=== PATIENT | female | born 1955 | race Caucasian/White ===

== ENCOUNTER 2021-08-07 10:13 | Inpatient (IN) | payer MEDICARE, OTHER ==
[~2021-08-07] VITALS: Ht 157.5 cm; Wt 67.6 kg
--- NOTE | 2021-08-07 10:23 | NUR ---
Pt BIB [facility] for severe abd pain x one night. Pt states that she was up all night in pain and didnt get any sleep. Pt aaox4 with slighly pale, good temp and appearance. Pt slightly hypertensive.
--- NOTE | 2021-08-07 10:23 | NUR ---
Pt taken straight to room 1b and placed on gurney in pos of comfort, connected to bedside monitor and initial VS obtained 157/97, 99%RA, 101 bpm, 18rpm. Pt boarderline sinus tach without ectopy, complaining of severe pain in RUQ and LUQ x one night. Pt suffers from hypertension, but no other major med issues. Denies any sob, dizziness and only mild nausea with no emesis. Pt gotten into gown and IV started on Rt AC 20g without difficulty. No s/sxof distress present.
[2021-08-07] MEDS ORDERED: MORPHINE SULFATE 4 MG/1 ML DISP.SYRIN ONE ×2 (10:24→14:16)
[2021-08-07] MEDS ORDERED: ONDANSETRON 4 MG/2 ML VIAL ONE (10:24)
[2021-08-07] MEDS ORDERED: IOHEXOL 300MG/ML 100 ML INFUS..BTL ONE (10:25)
[2021-08-07] MEDS ORDERED: IV NORMAL SALINE 250 ML IV ONE (10:26)
[2021-08-07] MEDS ORDERED: SWABABLE VALVE TRANSFER SET EA MC ONE (10:26)
[2021-08-07] MEDS ORDERED: ONDANSETRON 4 MG/2 ML VIAL IV ONE (10:30)
[2021-08-07] MEDS ORDERED: IV NORMAL SALINE 1000 ML BAG IV ONE (10:30)
[2021-08-07] MEDS ORDERED: MORPHINE SULFATE 2 MG/1 ML DISP.SYRIN IV ONE (10:30)
[2021-08-07 10:40] LABS: HEMATOCRIT 41.3 % (31.2-41.9); MEAN CORPUSCULAR HEMOGLOBIN 30.9 uug (24.7-32.8); MEAN CORPUSCULAR VOLUME 89.9 fL (75.5-95.3); PLATELET COUNT (AUTO) 112 K/uL (179-408)
--- NOTE | 2021-08-07 10:40 | NUR ---
Pt states that she needs to go to bathroom, but states that she cant walk. Pt urinated on gurney, because she was unable to hold urine until I reached for a bedpan. Pt assured that its quite alright and that we will clean her when she is done voiding. Pt provided pericare, linen and diaper changed. Pt is clean and dry and placed in pos of comfort. Pt told that UA is needed and to inform us next time she has the urge, we will give her a bedpan.
[2021-08-07 10:41] LABS: CARBON DIOXIDE 22 mmol/L (21-32); CHLORIDE 96 mmol/L (98-107); CREATININE 1.3 mg/dL (0.6-1.3); GLUCOSE 215 mg/dL (74-106); UREA NITROGEN, BLOOD 12 mg/dL (7-18)
--- NOTE | 2021-08-07 10:45 | NUR ---
12lead EKG performed without difficulty and show to EDMD.
[2021-08-07 10:54] LABS: ALANINE AMINOTRANSFERASE 67 U/L (14-59); ALKALINE PHOSPHATASE 79 U/L (50-136); ASPARTATE AMINOTRANSFERASE 81 U/L (15-37); BILIRUBIN,DIRECT 0.2 mg/dL (0.0-0.2); BILIRUBIN,TOTAL 0.9 mg/dL (0.2-1.0); LIPASE 134 U/L (73-393); TOTAL PROTEIN, SERUM 8.6 g/dL (6.4-8.2)
--- NOTE | 2021-08-07 11:16 | NUR ---
Pt just taken to CT by [facility] via [facility] for CT of abd and pelvis with contrast. Pt's VSS, PE WNL, No s/sxof distress present.
--- NOTE | 2021-08-07 11:37 | NUR ---
Pt just returned from CT tranported by [facility]. Pt placed back on monitor and fresh VS obtained. VSS, Pt states pain is doing much better but that she stil has 5/10 pain in the Rt flank area.
--- NOTE | 2021-08-07 11:52 | NUR ---
Pt requested bedpan again but was unable to hold it due to urgency. was able to collect approx 30cc of urine in bedpan, placed in specimen container, labled and sent to lab for analysis. EXECUTIVE VICE PRESIDENT students asisted with pericare and linen change. Pt is clean and dry and placed in pos of comfort. Pt states that pain is markedly better and is tolerable. I informed pt, that if she requires more pain meds, to just let me know. We preferrably want to keep pain less than 3/10. Pt acknowledged.
[2021-08-07] MEDS ORDERED: IV NORMAL SALINE 500 ML BAG IV ONE (12:00)
[2021-08-07 12:10] LABS: *BILIRUBIN,URIN NEGATIVE (NEGATIVE); *BLOOD, URINE NEGATIVE (NEGATIVE); *CLARITY,URINE CLEAR (CLEAR); *COLOR,URINE LIGHT YELLOW (YELLOW); *KETONES,URINE NEGATIVE (NEGATIVE); *UROBILINOGEN,URINE 0.2 E.U./dl (NORMAL); LEUKOCYTE ESTERASE ,URINE NEGATIVE (NEGATIVE); NITRITE, URINE NEGATIVE (NEGATIVE); UGLUCOSE NEGATIVE (NEGATIVE)
[2021-08-07] MEDS ORDERED: MORPHINE SULFATE 4 MG/1 ML DISP.SYRIN IV ONE (13:45)
[2021-08-07] MEDS ORDERED: CEFTRIAXONE 1 G in IV DEXTROSE 5% 50 ML IV ONE (13:45)
[2021-08-07] MEDS ORDERED: METRONIDAZOLE 500 MG/NS 100 ML PIGGYBACK IV ONE (13:45)
[2021-08-07] MEDS ORDERED: METRONIDAZOLE 500 MG/NS 100ML 100 ML IV ONE (14:16)
[2021-08-07] MEDS ORDERED: CEFTRIAXONE /D5W 50ML IVPB **ER PYXIS IV ONE (14:17)
--- NOTE | 2021-08-07 15:50 | NUR ---
Pt swabbed for covid since she is beind admitted under [facility]. Pt tolerated well.
--- NOTE | 2021-08-07 16:29 | NUR ---
PT UNABLE TO REMEMBER LIST OF CURRENT MEDICATIONS AND DOSAGES.
--- NOTE | 2021-08-07 17:14 | NUR ---
Pt assigned to room 325. Calling 3rd floor now to try to give report.
--- NOTE | 2021-08-07 18:45 | NUR ---
Pt transported to room 325 via gurney by me personally. Pt placed on hospital bed in pos of comfort. wet diaper changed. STATISTICAL CONSULTANT at bedside for inital admit VS. VSS. Pt aaox4 with good color and appearance. PE WNL, NAD. No s/sxof distress present.
[2021-08-07 18:48] VITALS: BP 146/61
--- NOTE | 2021-08-07 18:49 | NUR ---
Patient arrive [facility] via [facility]. vitals: 98.3, RR18, 0/10 pain and 146/61. Patient AAOX4. able to assist transferring herself from gurney to bed. IV access to RAC patent. Beni Mueller stated admission documents will come up later with next pt. delivery. Incoming shift will be endorsed pending admission and procedures.
[2021-08-07] MEDS ORDERED: ONDANSETRON 4 MG/2 ML VIAL IV PRN (19:45)
--- NOTE | 2021-08-07 20:00 | NUR ---
Admitted a 66 years old female with Dx of Acute cholecystitis. Patient AAOx3-4. In no acute distress. Denies any SOB. Complain of pain on abdominal area. Will provide pain medication per order. Iv site on right AC intact and patent. NPO status. Routine admission care done. Safety measure initiated and call light within reached.
[2021-08-07] MEDS: IV D5 1/2 NS 1000 ML 1,000 ML IV PRN (20:10)
[2021-08-07] MEDS: MORPHINE SULFATE 2 MG/1 ML DISP.SYRIN IV PRN (20:10)
[2021-08-07 20:15] VITALS: BP 130/69
[2021-08-07] MEDS ORDERED: PIPERACILLIN SODIUM/TAZOBACTAM 4.5 G in IV DEXTROSE 5% 50 ML IV ONE (21:00)
--- NOTE | 2021-08-07 23:35 | NUR ---
Telephone call from [facility] and reported that patient is + for COVID. Both charge nurse Tylor and Natural Resources Technician Vladimir made aware. Vladimir to inform OR Team. Patient transferred to COVID room 322.
[2021-08-08 04:00] VITALS: BP 124/66
[2021-08-08] MEDS: PIPERACILLIN SODIUM/TAZOBACTAM 3.375 G in IV DEXTROSE 5% 100 ML IV SCH ×3 (05:42→20:27)
--- NOTE | 2021-08-08 05:55 | NUR ---
Slept well during the night. Denies any further pain. No complain of SOB. IV site on right AC intact and patent. IVF infusing. NPO status. COVID precaution maintained. Safety measure maintained and call light within reached.
[2021-08-08 06:18] LABS: HEMATOCRIT 35.3 % (31.2-41.9); MEAN CORPUSCULAR HEMOGLOBIN 31.2 uug (24.7-32.8); MEAN CORPUSCULAR VOLUME 91.1 fL (75.5-95.3); PLATELET COUNT (AUTO) 100 K/uL (179-408)
[2021-08-08 06:30] LABS: CREATININE 1.2 mg/dL (0.6-1.3); MAGNESIUM 1.5 mg/dL (1.8-2.4); PHOSPHOROUS 2.4 mg/dL (2.5-4.9); POTASSIUM 3.9 mmol/L (3.5-5.1)
[2021-08-08 06:50] LABS: THYROID STIMULATING HORMONE 0.988 mIU/mL (0.358-3.740)
[2021-08-08] MEDS ORDERED: BUPIVACAINE/EPI PF 0.5% 10 ML VIAL ONE (08:05)
--- NOTE | 2021-08-08 08:19 | NUR ---
CALL RECEIVED FROM DR THOMAS WITH ORDER FOR LAPAROSCOPIC CHOLECYSTECTOMY POSSIBLE OPEN WILL OBTAIN CONSCENT.
[2021-08-08] MEDS: PANTOPRAZOLE SODIUM 40 MG VIAL IV SCH (08:48)
--- NOTE | 2021-08-08 09:19 | NUR ---
MAGNESSIUM LEVEL IS 1.5 WITH NEW REPLACEMENT ORDERS AND NOTED CONSCENT SIGNED BY THE PATIENT PER DR THOMAS
[2021-08-08] MEDS: MAGNESIUM SULFATE/D5W 100 ML IV SCH ×2 (09:24→10:30)
--- NOTE | 2021-08-08 10:26 | NUR ---
PATIENT SEEN AND EXAMINED BY BUCKY GOVEA WITH NEW ORDERS AND NOTED.
[2021-08-08 12:00] VITALS: BP 114/66
[2021-08-08] MEDS: MORPHINE SULFATE 2 MG/1 ML DISP.SYRIN IV PRN (13:09)
--- NOTE | 2021-08-08 13:40 | NUR ---
PATIENT PICKED UP BY BED BY THE OR NURSES FOR THE SCHEDULED SURGERY IN SATISFACTORY CONDITION PATIENT HAD C/O FEELS HER ABDOMEN PAIN BUT STATED FEELING BETTER AFTER RIP MORPHINE ADMINISTRATION ORDERED AT ABOUT 1309
[2021-08-08] MEDS ORDERED: ROCURONIUM BROMIDE 50 MG/5 ML VIAL ONE (13:41)
[2021-08-08] MEDS ORDERED: HYDROMORPHONE 2 MG/1 ML DISP.SYRIN ONE (13:41)
[2021-08-08] MEDS ORDERED: FLUO20CA36 PO (13:42)
[2021-08-08] MEDS ORDERED: ERGO500040 PO (13:42)
[2021-08-08] MEDS ORDERED: ALEN70TA80 PO (13:42)
[2021-08-08] MEDS ORDERED: ATEN25TA PO (13:42)
[2021-08-08] MEDS ORDERED: VITA1TAB20 PO (13:42)
[2021-08-08] MEDS ORDERED: OMEP40CA21 PO (13:42)
[2021-08-08] MEDS ORDERED: CALC-883 PO (13:42)
[2021-08-08] MEDS ORDERED: ZINC220T3 PO (13:42)
[2021-08-08] MEDS ORDERED: LORA2TAB95 PO (13:42)
[2021-08-08] MEDS ORDERED: BUSP15TA3 PO (13:42)
[2021-08-08] MEDS ORDERED: QUET25TA PO (13:42)
[2021-08-08] MEDS ORDERED: BUPIVACAINE 0.25% 30 ML VIAL ONE (14:20)
[2021-08-08 16:00] VITALS: BP 113/59
--- NOTE | 2021-08-08 16:25 | NUR ---
PATIENT RETURNED FROM THE OR BY BED GROGGY BUT OPENS EYES WHEN NAME IS CALLED ON O2 AT 3L/M BY NASAL CANULA WITH NO SOB AT THIS TIME.ABDOMEN WITH 3 STAB SITES WITH BAND AIDE AND DRESSING INTACT WITH HORACIO BRITO WITH BLOODY DRAINAGE VITALS WNL POST OP TEACHING IN PROGRESS WILL CONTINUE TO OBSERVE.
[2021-08-08 16:30] VITALS: BP 98/55
[2021-08-08 17:00] VITALS: BP 100/5
[2021-08-08] MEDS: IV D5 1/2 NS 1000 ML 1,000 ML IV PRN (17:45)
--- NOTE | 2021-08-08 18:00 | NUR ---
MAKSIM DRAINAGE EMPTIED 60 ML OF BLOODY DRAINAGE O2 CURRENTLY AT 4L/M BECAUSE SHE WAS SATING 90 PERCENT AND NOW ITS UP TO 95 PERCENT OFFERED DINNER STATED NOT HUNGRY WANTS WATER WITH ICE GIVEN AND TOLERATE WELL.
--- NOTE | 2021-08-08 19:30 | NUR ---
Patient alert oriented, no sob no chest pain, denies pain at this time, has abdominal three small dressing, also has MAKSIM on right side of abdomen draining with serosangeneous in moderate amount, instructed patient to use IS while awake, cont to monitor.
[2021-08-08 20:00] VITALS: BP 101/61
[2021-08-08] MEDS ORDERED: SODIUM PHOSPHATE MM 15 MMOL in IV NORMAL SALINE 250 ML IV ONE (20:00)
[2021-08-09 04:00] VITALS: BP 133/68
--- NOTE | 2021-08-09 04:09 | NUR ---
MAKSIM DRAINAGE IS 80CC, PATIENT NOT VOIDING ENOUGH, SCANNED THE BLADDER AND RESULT OF 362 IN THE BLADDER, WITH ORDER TO STRAIGHT CATH PATIENT IF POST VOID MORE THAN 250CC, OBTAINED, 400CC WITH YELLOW COLOR URINE, TOLERATE WELL.
[2021-08-09] MEDS: PIPERACILLIN SODIUM/TAZOBACTAM 3.375 G in IV DEXTROSE 5% 100 ML IV SCH ×3 (05:12→20:41)
[2021-08-09 07:06] LABS: HEMATOCRIT 35.7 % (31.2-41.9); MEAN CORPUSCULAR HEMOGLOBIN 30.8 uug (24.7-32.8); MEAN CORPUSCULAR VOLUME 90.3 fL (75.5-95.3); PLATELET COUNT (AUTO) 90 K/uL (179-408)
[2021-08-09 07:28] LABS: CREATININE 1.2 mg/dL (0.6-1.3); MAGNESIUM 2.2 mg/dL (1.8-2.4); PHOSPHOROUS 3.8 mg/dL (2.5-4.9); POTASSIUM 4.1 mmol/L (3.5-5.1)
[2021-08-09 07:30] VITALS: BP 136/74
[2021-08-09] MEDS: PANTOPRAZOLE SODIUM 40 MG VIAL IV SCH (08:35)
[2021-08-09] MEDS: IV D5 1/2 NS 1000 ML 1,000 ML IV PRN (08:36)
[2021-08-09] MEDS: MORPHINE SULFATE 2 MG/1 ML DISP.SYRIN IV PRN (09:02)
--- NOTE | 2021-08-09 11:25 | NUR ---
Pt is a/o x 3-4, cooperative with care. Pt was complaining of abdominal pain, administered prn morphine. Pt then reported feeling better. PT eval completed. pt walked at bedside with PT assist. Comfort measures provided, call light within reach, will continue to monitor.
[2021-08-09 12:25] LABS: BILIRUBIN,DIRECT 0.1 mg/dL (0.0-0.2); BILIRUBIN,TOTAL 0.6 mg/dL (0.2-1.0); TOTAL PROTEIN, SERUM 6.9 g/dL (6.4-8.2)
[2021-08-09 15:33] VITALS: BP 108/56
[2021-08-09 20:50] VITALS: BP 103/55
[2021-08-09] MEDS: busPIRone 10 MG TABLET PO SCH (23:23)
[2021-08-10 04:25] VITALS: BP 122/58
[2021-08-10] MEDS: PIPERACILLIN SODIUM/TAZOBACTAM 3.375 G in IV DEXTROSE 5% 100 ML IV SCH ×3 (05:07→20:54)
[2021-08-10] MEDS: PANTOPRAZOLE SODIUM 40 MG TABLET.DR PO SCH (06:25)
[2021-08-10 06:56] LABS: MEAN CORPUSCULAR VOLUME 91.1 fL (75.5-95.3); PLATELET COUNT (AUTO) 114 K/uL (179-408)
[2021-08-10] MEDS ORDERED: PANTOPRAZOLE SODIUM 40 MG TABLET.DR PO SCH (07:00)
[2021-08-10 07:08] LABS: BILIRUBIN,TOTAL 0.8 mg/dL (0.2-1.0); PHOSPHOROUS 2.4 mg/dL (2.5-4.9); POTASSIUM 3.7 mmol/L (3.5-5.1)
[2021-08-10] MEDS: FLUOXETINE HCL 20 MG CAPSULE PO SCH (09:29)
[2021-08-10] MEDS: VITAMIN B COMPLEX 1 TABLET PO SCH (09:29)
[2021-08-10] MEDS: CALCIUM CARB/VITAMIN D 500MG-200UNITS TABLET PO SCH ×2 (09:29→17:21)
[2021-08-10] MEDS: busPIRone 10 MG TABLET PO SCH ×2 (09:29→17:21)
[2021-08-10] MEDS: ZINC SULFATE 220 MG CAPSULE PO SCH (09:29)
[2021-08-10] MEDS: ATENOLOL 25 MG TABLET PO SCH (09:30)
[2021-08-10] MEDS: QUETIAPINE FUMARATE 25 MG TABLET PO SCH (09:34)
--- NOTE | 2021-08-10 10:00 | NUR ---
RECEIEVED PT ON BED RESTING AND AWAKE JUST WATING FOR BF. AOX3-4. VITALS WNL. NO COMPLAIN OF PAIN. SKIN INTACT.
--- NOTE | 2021-08-10 11:00 | NUR ---
PT DESATURATING ON 5L NC 90-91% . NOTIFIED MD. SWITCH TO FACE MASK 6L/MIN PT SATURATING AT 97-98%
[2021-08-10 11:39] VITALS: BP 106/69
[2021-08-10 12:50] LABS: BILIRUBIN,DIRECT 0.2 mg/dL (0.0-0.2)
[2021-08-10] MEDS ORDERED: LIDOCAINE-MPF 2% 5 ML VIAL IJ ONE (15:13)
[2021-08-10] MEDS ORDERED: EPHEDRINE SULFATE 50 MG/ML AMPUL IM ONE (15:13)
[2021-08-10] MEDS ORDERED: NEOSTIGMINE METHYLSULFATE 10 MG/10 ML VIAL IM ONE (15:13)
[2021-08-10] MEDS ORDERED: KETOROLAC TROMETHAMINE 30 MG INJ IM ONE (15:13)
[2021-08-10] MEDS ORDERED: ONDANSETRON 4 MG/2 ML VIAL IV ONE (15:13)
[2021-08-10] MEDS ORDERED: SEVOFLURANE 250 ML BOTTLE IH ONE (15:13)
[2021-08-10] MEDS ORDERED: SUCCINYLCHOLINE CHLORIDE 200 MG/10 ML VIAL IV ONE (15:13)
[2021-08-10] MEDS ORDERED: PROPOFOL 200 MG/20 ML BOTTLE IV ONE (15:13)
[2021-08-10] MEDS ORDERED: DEXAMETHASONE SOD PHOSPHATE 4 MG INJ IV ONE (15:13)
[2021-08-10] MEDS ORDERED: GLYCOPYRROLATE 0.2 MG/ML VIAL IJ ONE (15:13)
[2021-08-10 15:36] VITALS: BP 111/59
[2021-08-10] MEDS ORDERED: NEUTRA PHOS PACKET PO ONE ×2 (16:00→18:00)
[2021-08-10] MEDS: DEXAMETHASONE SOD PHOSPHATE 4 MG INJ IV SCH (17:21)
--- NOTE | 2021-08-10 20:00 | NUR ---
RECEIVED PATIENT IN BED. AAOX3-4, [place] CITIZ[place] SPEAKING WITH LIMITED BULGARIAN. ON 5L O2, VIA SIMPLE MASK 95-96%. ATTEMPTED TO TITRATE DOWN, HOWEVER, PATIENT DESATURATES DOWN TO 92-93%. PATIENT DENIES SOB. IV ACCESS ON RIGHT ANTECUBITAL INFILTRATED. STARTED NEW IV ACCESS ON LFA, 20 GAUGE. IVF RUNNING WELL. SAFETY PRECAUTIONS MAINTAINED. CLOSELY MONITORED.
[2021-08-10 21:09] VITALS: BP 94/34
[2021-08-10 22:40] VITALS: BP 110/73
[2021-08-11] MEDS: IV D5 1/2 NS 1000 ML 1,000 ML IV PRN (04:30)
[2021-08-11] MEDS: PIPERACILLIN SODIUM/TAZOBACTAM 3.375 G in IV DEXTROSE 5% 100 ML IV SCH (04:33)
[2021-08-11 04:45] VITALS: BP 95/58
[2021-08-11 05:41] VITALS: BP 123/73
--- NOTE | 2021-08-11 06:20 | NUR ---
PATIENT SLEPT THROUGH THE NIGHT WITH NO COMPLAINTS. EPISODES OF HYPOTENSION NOTED, HOWEVER, PATIENT DENIED DIZZINESS OR HEADACHE. ATTEMPTED TO TITRATE O2, HOWEVER, PT DESATS DOWN TO 89%. CURRENTLY ON 4L O2 VIA SIMPLE MASK. PT TOLERATED ZOSYN. IVF RUNNING & INFUSING WELL. SAFETY PRECAUTIONS MAINTAINED.
[2021-08-11] MEDS: PANTOPRAZOLE SODIUM 40 MG TABLET.DR PO SCH (07:03)
[2021-08-11 07:14] LABS: CREATININE 1.1 mg/dL (0.6-1.3); PHOSPHOROUS 2.8 mg/dL (2.5-4.9); POTASSIUM 3.9 mmol/L (3.5-5.1)
--- NOTE | 2021-08-11 09:00 | NUR ---
Awake, alert, oriented x 4. Titrated to room air with O2 sat of 95%. IS at bedside, reinstructed of use.
[2021-08-11] MEDS: DEXAMETHASONE SOD PHOSPHATE 4 MG INJ IV SCH (10:41)
[2021-08-11] MEDS: busPIRone 10 MG TABLET PO SCH ×2 (10:41→17:15)
[2021-08-11] MEDS: CALCIUM CARB/VITAMIN D 500MG-200UNITS TABLET PO SCH ×2 (10:42→17:15)
[2021-08-11] MEDS: QUETIAPINE FUMARATE 25 MG TABLET PO SCH (10:42)
[2021-08-11] MEDS: FLUOXETINE HCL 20 MG CAPSULE PO SCH (10:42)
[2021-08-11] MEDS: ZINC SULFATE 220 MG CAPSULE PO SCH (10:43)
[2021-08-11] MEDS: ATENOLOL 25 MG TABLET PO SCH (10:43)
[2021-08-11] MEDS: VITAMIN B COMPLEX 1 TABLET PO SCH (10:46)
[2021-08-11] MEDS: ENOXAPARIN SODIUM 40 MG/0.4 ML DISP.SYRIN SQ SCH (10:46)
[2021-08-11 11:00] VITALS: BP 93/50
--- NOTE | 2021-08-11 12:30 | NUR ---
Noted loose greenish stool. Incontinence care done. Transported to CT via wheelchair
--- NOTE | 2021-08-11 18:00 | NUR ---
Room air O2 sat 85-88%. IS reinstructed to use, still desaturating. O2 at 2L/NC 91-92%, increased to 3L/NC with O2 sat of 94%. Incontinence care done. Repositioned comfortably
--- NOTE | 2021-08-11 20:15 | NUR ---
rounds made patient in bed aaox3, patient able to answer questions pts is coherent she said she lives in [place] and wants to know when shes going home advised here to speak with her doctor in the morning .patient tolerating 02 nasal cannula at 3 liter/min saturation 92% rr 19 no s/s of respiratory distress , breathing even and unlabored .she wants the little light on in her room . call light placed with in reach and advised to call for assistance patient verbalized understanding .
[2021-08-11 20:59] VITALS: BP 98/52
[2021-08-12 04:46] VITALS: BP 106/56
[2021-08-12] MEDS: PANTOPRAZOLE SODIUM 40 MG TABLET.DR PO SCH (06:24)
[2021-08-12] MEDS ORDERED: ALENDRONATE SODIUM 70 MG TABLET PO SCH (07:00)
[2021-08-12 07:30] LABS: HEMATOCRIT 35.1 % (31.2-41.9); MEAN CORPUSCULAR HEMOGLOBIN 31.1 uug (24.7-32.8); MEAN CORPUSCULAR VOLUME 90.5 fL (75.5-95.3); PLATELET COUNT (AUTO) 121 K/uL (179-408)
--- NOTE | 2021-08-12 07:30 | NUR ---
Received pt. AAOX3. vitals stable no c/of pain on 3LNC afebrile. IV line patent. Will continue with care plan.
[2021-08-12 07:46] LABS: BILIRUBIN,DIRECT 0.1 mg/dL (0.0-0.2); BILIRUBIN,TOTAL 0.4 mg/dL (0.2-1.0); MAGNESIUM 1.9 mg/dL (1.8-2.4); PHOSPHOROUS 2.3 mg/dL (2.5-4.9); POTASSIUM 3.5 mmol/L (3.5-5.1); TOTAL PROTEIN, SERUM 6.7 g/dL (6.4-8.2)
[2021-08-12] MEDS ORDERED: ERGOCALCIFEROL 50,000 UNIT CAPSULE PO SCH (09:00)
[2021-08-12] MEDS: busPIRone 10 MG TABLET PO SCH ×2 (09:31→16:22)
[2021-08-12] MEDS: QUETIAPINE FUMARATE 25 MG TABLET PO SCH (09:31)
[2021-08-12] MEDS: CALCIUM CARB/VITAMIN D 500MG-200UNITS TABLET PO SCH ×2 (09:31→16:22)
[2021-08-12] MEDS: DEXAMETHASONE SOD PHOSPHATE 4 MG INJ IV SCH (09:31)
[2021-08-12] MEDS: FLUOXETINE HCL 20 MG CAPSULE PO SCH (09:32)
[2021-08-12] MEDS: ENOXAPARIN SODIUM 40 MG/0.4 ML DISP.SYRIN SQ SCH (09:33)
[2021-08-12] MEDS: ZINC SULFATE 220 MG CAPSULE PO SCH (09:37)
[2021-08-12] MEDS: VITAMIN B COMPLEX 1 TABLET PO SCH (09:38)
[2021-08-12] MEDS: ATENOLOL 25 MG TABLET PO SCH (09:41)
--- NOTE | 2021-08-12 10:00 | NUR ---
Order to stop IV fluids received from Dr. Rosario and user error place order under Dr. Burton.
[2021-08-12 11:35] VITALS: BP 121/67
[2021-08-12 16:00] VITALS: BP 91/52
[2021-08-12] MEDS ORDERED: NEUTRA PHOS PACKET PO ONE (17:00)
--- NOTE | 2021-08-12 19:17 | NUR ---
Report given to incoming rn. Left pt. resting comfortable in bed.
[2021-08-12 20:00] VITALS: BP 110/69
--- NOTE | 2021-08-12 21:30 | NUR ---
Pt resting on bed; abdominal wounds/lap sites clean and intact; denies any pain; no N/V/D; incontinence care done
[2021-08-13 04:45] VITALS: BP 136/59
--- NOTE | 2021-08-13 05:18 | NUR ---
Pt rested well in between care; incontinence care done; z guard applied to groin/nick area; placed pt for Purewick as trial; will continue to observe.
[2021-08-13] MEDS: PANTOPRAZOLE SODIUM 40 MG TABLET.DR PO SCH (06:04)
[2021-08-13 07:41] LABS: PHOSPHOROUS 3.2 mg/dL (2.5-4.9)
--- NOTE | 2021-08-13 10:00 | NUR ---
Pt o2 sat 88-89% on r/a @ rest. Encouraged pt to use IS.
[2021-08-13] MEDS: busPIRone 10 MG TABLET PO SCH ×2 (10:31→16:41)
[2021-08-13] MEDS: QUETIAPINE FUMARATE 25 MG TABLET PO SCH (10:31)
[2021-08-13] MEDS: DEXAMETHASONE SOD PHOSPHATE 4 MG INJ IV SCH (10:31)
[2021-08-13] MEDS: ZINC SULFATE 220 MG CAPSULE PO SCH (10:31)
[2021-08-13] MEDS: CALCIUM CARB/VITAMIN D 500MG-200UNITS TABLET PO SCH ×2 (10:32→16:42)
[2021-08-13] MEDS: FLUOXETINE HCL 20 MG CAPSULE PO SCH (10:32)
[2021-08-13] MEDS: ENOXAPARIN SODIUM 40 MG/0.4 ML DISP.SYRIN SQ SCH (10:32)
[2021-08-13] MEDS: ATENOLOL 25 MG TABLET PO SCH (10:33)
[2021-08-13] MEDS: VITAMIN B COMPLEX 1 TABLET PO SCH (10:37)
[2021-08-13 11:00] VITALS: BP 91/48
[2021-08-13 16:00] VITALS: BP 102/64
--- NOTE | 2021-08-13 18:21 | NUR ---
Pt tolerating 02 @ 1 liter via n/c with 97% 02 sat.
--- NOTE | 2021-08-13 19:30 | NUR ---
Received pt awake, alert and orientedx4. Pt on 1L on nasal cannula. PT in no acute distress. Iv intact. Safety and comfort provided. Will continue to monitor.
[2021-08-13 20:09] VITALS: BP 99/46
[2021-08-14 04:36] VITALS: BP 124/67
--- NOTE | 2021-08-14 05:44 | NUR ---
Pt in no acute distress. PT iv intact. Prescribed medication given and pt tolerated it well . Pt titrated to room air. Pt desaturated at 87%. Pt not tolerating room air. Pt put to 1L nasal cannula. Pt tolerated well. Safety and comfort provided. All needs are met.Will endorse to incoming nurse for continuity of care.
[2021-08-14] MEDS: PANTOPRAZOLE SODIUM 40 MG TABLET.DR PO SCH (06:02)
[2021-08-14] MEDS: VITAMIN B COMPLEX 1 TABLET PO SCH (09:20)
[2021-08-14] MEDS: DEXAMETHASONE SOD PHOSPHATE 4 MG INJ IV SCH (09:20)
[2021-08-14] MEDS: FLUOXETINE HCL 20 MG CAPSULE PO SCH (09:20)
[2021-08-14] MEDS: ZINC SULFATE 220 MG CAPSULE PO SCH (09:20)
[2021-08-14] MEDS: busPIRone 10 MG TABLET PO SCH ×2 (09:21→17:47)
[2021-08-14] MEDS: CALCIUM CARB/VITAMIN D 500MG-200UNITS TABLET PO SCH ×2 (09:21→17:47)
[2021-08-14] MEDS: QUETIAPINE FUMARATE 25 MG TABLET PO SCH (09:24)
[2021-08-14] MEDS: ATENOLOL 25 MG TABLET PO SCH (10:07)
[2021-08-14] MEDS: ENOXAPARIN SODIUM 40 MG/0.4 ML DISP.SYRIN SQ SCH (10:08)
[2021-08-14 12:14] VITALS: BP 98/47
[2021-08-14] MEDS ORDERED: DEXA4TAB PO (13:55)
--- NOTE | 2021-08-14 14:00 | NUR ---
Pt has be saturation at 92% on room air. Will continue to monitor.
[2021-08-14 16:21] VITALS: BP 101/55
--- NOTE | 2021-08-14 16:48 | NUR ---
Spoke with Dulce from [facility] who stated that she was told by someone at [facility] that we would provide transportation to the family for the pt. She also stated that she cannot accept patient today but she can be transfers tomorrow 08/15. Will continue to monitor.
--- NOTE | 2021-08-14 18:55 | NUR ---
Patient left resting in bed. All medication given as ordered. Pt is no longer on O2 and is saturating at 92% and above. No sign of distress noted. Safety measures implemented. Will endorse to oncoming nurse.
[2021-08-14 20:24] VITALS: BP 153/86
[2021-08-15 04:00] VITALS: BP 122/64
[2021-08-15] MEDS: PANTOPRAZOLE SODIUM 40 MG TABLET.DR PO SCH (06:23)
--- NOTE | 2021-08-15 06:31 | NUR ---
PATIENT AWAKE AND ABLE TO MAKE NEEDS KNOWN.DENIES PAIN OR DISCOMFORT AT THIS TIME.INCISION SITE X3 WITH ROXANE IN PLACE. NO ACTIVE BLEEDING.ON RA.NO S/S OF DISTRESS NOTED.INSERTED IV LINE ON RIGHT FA 22G WITH BLOOD RETURN. TOLERATED WELL.ALL NEEDS ANTICIPATED AND MET ACCORDINGLY.WILL ENDORSE TO ONCOMING SHIFT.
[2021-08-15] MEDS: ENOXAPARIN SODIUM 40 MG/0.4 ML DISP.SYRIN SQ SCH (09:45)
[2021-08-15] MEDS: CALCIUM CARB/VITAMIN D 500MG-200UNITS TABLET PO SCH ×2 (09:46→16:49)
[2021-08-15] MEDS: DEXAMETHASONE SOD PHOSPHATE 4 MG INJ IV SCH (09:46)
[2021-08-15] MEDS: ZINC SULFATE 220 MG CAPSULE PO SCH (09:46)
[2021-08-15] MEDS: FLUOXETINE HCL 20 MG CAPSULE PO SCH (09:46)
[2021-08-15] MEDS: QUETIAPINE FUMARATE 25 MG TABLET PO SCH (09:46)
[2021-08-15] MEDS: busPIRone 10 MG TABLET PO SCH ×2 (09:47→16:49)
[2021-08-15] MEDS: VITAMIN B COMPLEX 1 TABLET PO SCH (09:48)
[2021-08-15] MEDS: ATENOLOL 25 MG TABLET PO SCH (09:51)
[2021-08-15 12:00] VITALS: BP 101/59
--- NOTE | 2021-08-15 12:21 | NUR ---
Patient was noted with desaturation on room air at 88-89%. Hooked on 3L via NC, improved to 90-94%. [place], ANIME ARTIST aware. Per ANIME ARTIST, patient will note be discharged today. will continue to monitor.
[2021-08-15 16:00] VITALS: BP 104/55
--- NOTE | 2021-08-15 18:36 | NUR ---
Patient maintained saturation at 96% on 3L NC. Denies discomfort and SOB. Noted with redness to perineal area, photo in chart with order of wound consult. No distress identified. kept call light within reach. all needs attended. will endorse to the next shift for continuity of care.
[2021-08-15 20:00] VITALS: BP 122/65
[2021-08-16 04:00] VITALS: BP 110/62
[2021-08-16] MEDS: PANTOPRAZOLE SODIUM 40 MG TABLET.DR PO SCH (06:32)
--- NOTE | 2021-08-16 06:46 | NUR ---
Patient alert oriented, no sob no chest pain, cont on oxygen 3lpm sat 92% and above, no complain of pain at this time, remain on droplet precaution, asymptomatic,
[2021-08-16] MEDS: DEXAMETHASONE SOD PHOSPHATE 4 MG INJ IV SCH (08:33)
[2021-08-16] MEDS: QUETIAPINE FUMARATE 25 MG TABLET PO SCH (08:33)
[2021-08-16] MEDS: ZINC SULFATE 220 MG CAPSULE PO SCH (08:33)
[2021-08-16] MEDS: busPIRone 10 MG TABLET PO SCH ×2 (08:33→17:09)
[2021-08-16] MEDS: CALCIUM CARB/VITAMIN D 500MG-200UNITS TABLET PO SCH ×2 (08:33→17:09)
[2021-08-16] MEDS: FLUOXETINE HCL 20 MG CAPSULE PO SCH (08:33)
[2021-08-16] MEDS: ATENOLOL 25 MG TABLET PO SCH (08:45)
[2021-08-16] MEDS: MORPHINE SULFATE 2 MG/1 ML DISP.SYRIN IV PRN (08:46)
[2021-08-16] MEDS: ENOXAPARIN SODIUM 40 MG/0.4 ML DISP.SYRIN SQ SCH (09:08)
[2021-08-16] MEDS: VITAMIN B COMPLEX 1 TABLET PO SCH (09:09)
[2021-08-16 12:00] VITALS: BP 111/59
[2021-08-16] MEDS ORDERED: BENZ-13 PO (12:23)
[2021-08-16] MEDS ORDERED: DEXA4TAB PO (12:23)
[2021-08-16] MEDS ORDERED: ATEN25TA PO (12:23)
--- NOTE | 2021-08-16 12:59 | NUR ---
WOUND CARE CONSULT: REVIEWED CHART, NURSING DOCUMENTATION AND PHOTOS WHICH INDICATE RASH WITH SKIN DISCOLORATION TO BUTTOCKS, GROIN FOLDS AND PERINEUM, PRESENT ON ADMISSION. RECOMMENDATIONS MADE FOR SKIN CARE AND PROTECTION. DISCUSSED WITH NURSING STAFF. IN AGREEMENT WITH PLAN OF CARE. Addendum: 08/16/21 at 1306 by ERASTO RODRIGUEZ RN UNABLE TO ASCERTAIN WHETHER RASH WAS PRESENT ON ADMISSION.
[2021-08-16] MEDS ORDERED: REMEDY ESSENTIAL ZINC PASTE 113 GM TOP PRN (13:00)
[2021-08-16 15:52] VITALS: BP 96/51
[2021-08-16] MEDS: CLOTRIMAZOLE 1% CREAM 30 GM TUBE TOP SCH (17:08)
--- NOTE | 2021-08-16 18:00 | NUR ---
Patient is alert x2, able to make needs known. c/o pain to neck in supervisor quilting,m relieved with rest, repositioning and PRN morphine. Conitnues to have moist cough, on 3L 02 via NC, 02 sats above 90%. no SOB. S/P lap cholecystectomy, incision sites clean and dry, johanna in place. Patient denies pain to sites. Able to ambulate with SBA with PT.
--- NOTE | 2021-08-16 18:51 | NUR ---
Spoke with staff at [facility] and made aware of patients discharge, pending transportation rock picker by ambulance. BEL Brown made aware via call canter service of discharge.
[2021-08-16] MEDS: REMEDY ESSENTIAL ZINC PASTE 113 GM TOP SCH (21:15)
--- NOTE | 2021-08-17 04:55 | NUR ---
Patient's discharge was cancelled secondary to insyurance purpose. Nursing case supervisor aware. All needs attended. Will monitor patient.
[2021-08-17] MEDS: PANTOPRAZOLE SODIUM 40 MG TABLET.DR PO SCH (06:15)
[2021-08-17] MEDS: busPIRone 10 MG TABLET PO SCH (08:50)
[2021-08-17] MEDS: FLUOXETINE HCL 20 MG CAPSULE PO SCH (08:50)
[2021-08-17] MEDS: ZINC SULFATE 220 MG CAPSULE PO SCH (08:51)
[2021-08-17] MEDS: QUETIAPINE FUMARATE 25 MG TABLET PO SCH (08:51)
[2021-08-17] MEDS: DEXAMETHASONE SOD PHOSPHATE 4 MG INJ IV SCH (08:52)
[2021-08-17] MEDS: VITAMIN B COMPLEX 1 TABLET PO SCH (08:52)
[2021-08-17] MEDS: REMEDY ESSENTIAL ZINC PASTE 113 GM TOP SCH (08:53)
[2021-08-17] MEDS: CLOTRIMAZOLE 1% CREAM 30 GM TUBE TOP SCH (08:54)
[2021-08-17] MEDS: CALCIUM CARB/VITAMIN D 500MG-200UNITS TABLET PO SCH (09:01)
[2021-08-17] MEDS: ENOXAPARIN SODIUM 40 MG/0.4 ML DISP.SYRIN SQ SCH (09:01)
[2021-08-17 09:12] VITALS: BP 140/70
[2021-08-17] MEDS: ATENOLOL 25 MG TABLET PO SCH (09:12)
--- NOTE | 2021-08-17 12:30 | NUR ---
Patient discharged from unit. IV site removed. ID badge removed. Discharge education provided.
== END 2021-08-17 12:33 | DRG 417 ==
LOC: ER 10:13 → MEDSURG3 18:35
PROVIDERS: ATTEND Nurse Practitioner Acute Care
PROC: 0FT44ZZ Resection of Gallbladder, Percutaneous Endoscopic Approach (ICD-10-PCS; principal; 2021-08-08)
DX: K80.12 Calculus of gallbladder with acute and chronic cholecystitis without obstruction (principal); J96.01 Acute respiratory failure with hypoxia; U07.1 COVID-19; E87.2 Acidosis; J98.11 Atelectasis; N17.9 Acute kidney failure, unspecified; K74.60 Unspecified cirrhosis of liver; D69.6 Thrombocytopenia, unspecified; F32.A Depression, unspecified; F41.9 Anxiety disorder, unspecified; K21.9 Gastro-esophageal reflux disease without esophagitis; K29.70 Gastritis, unspecified, without bleeding; K76.0 Fatty (change of) liver, not elsewhere classified; E66.9 Obesity, unspecified; Z68.27 Body mass index [BMI] 27.0-27.9, adult; N18.9 Chronic kidney disease, unspecified; I12.9 Hypertensive chronic kidney disease with stage 1 through stage 4 chronic kidney disease, or unspecified chronic kidney disease; K66.0 Peritoneal adhesions (postprocedural) (postinfection)
CPT/HCPCS: 36415; 71045; 71250; 76705; 83605; 83615; 83690; 83735; 84100; 84443; 84484; 85025; 85730; 86140; 93005; 97161; A4663; C1758; C9113; G0378; J0330; J0696; J1100; J1170; J1650; J1885; J2270; J2405; J2543; J3475; J3490; Q9967